=== PATIENT | female | born 1950 | race Caucasian/White ===

== ENCOUNTER 2021-05-24 13:06 | Emergency (ER) | payer SELFPAY ==
[2021-05-24 13:36] VITALS: BP 159/66; BMI 27.6
[2021-05-24 13:37] VITALS: PULSE 62; TEMP 98.2
[2021-05-24] MEDS ORDERED: KETOROLAC TROMETHAMINE 30 MG/1 ML VIAL IM ONE (15:10)
[2021-05-24] MEDS ORDERED: KETOROLAC TROMETHAMINE 30 MG/1 ML VIAL ONE (15:14)
== END 2021-05-24 15:19 | disposition home or self-care (01) ==
LOC: JER 13:06 → JERFT 13:06
DX: M79.672 Pain in left foot (principal)
CPT/HCPCS: 93005; 93010; 99281-25

== ENCOUNTER 2024-06-15 10:28 | Inpatient (IN) | payer SELFPAY ==
[2024-06-15] MEDS ORDERED: ACETAMINOPHEN INJECTION 100 ML ONE (11:50)
[2024-06-15 12:17] LABS: BASO % 0.7 % (0-2.0); EOS % 3.9 % (0-4.5); HEMATOCRIT 35.8 % (32.4-45.2); HEMOGLOBIN 12.2 GM/dL (10.7-15.3); MCH 29.9 pg (25.7-33.7); MCHC 34.1 g/dl (32.0-36.0); MEAN CELL VOLUME 87.6 fl (80-96); MONO % 7.6 % (3.8-10.2); NEUT % 57.8 % (42.8-82.8); PLATELET COUNT 381 10^3/uL (134-434); RBC 4.08 M/mm3 (3.60-5.2); RDW 14.5 % (11.6-15.6); WHITE BLOOD COUNT 6.9 K/mm3 (4.0-10.0)
[2024-06-15 12:50] LABS: CHLORIDE 105 mmol/L (98-107); POTASSIUM 4.2 mmol/L (3.5-5.1); SODIUM 137 mmol/L (136-145)
[2024-06-15 12:51] LABS: CALCIUM 9.4 mg/dL (8.5-10.1)
[2024-06-15 12:52] LABS: ALBUMIN 3.5 g/dl (3.4-5.0); ANION GAP 7 mmol/L (4-13); BLOOD UREA NITROGEN 24.2 mg/dL (7-18); CO2 25 mmol/L (21-32); GLUCOSE,RANDOM 252 mg/dL (74-106)
[2024-06-15 12:55] LABS: CREATININE 0.9 mg/dL (0.55-1.3); ERYTHROCYTE SEDIMENTATION RATE 43 mm/hr (0-30); SGOT/AST 18 U/L (15-37); SGPT/ALT 29 U/L (13-61)
[2024-06-15 12:56] LABS: TOT PROT 7.6 g/dl (6.4-8.2)
[2024-06-15] MEDS: ACETAMINOPHEN 1000 MG/100 ML BAG IVPB ONE (12:56)
[2024-06-15 12:58] LABS: ALK PHOS 92 U/L (45-117); BILIRUBIN,TOTAL 0.3 mg/dL (0.2-1)
[2024-06-15] MEDS ORDERED: VANCOMYCIN/WATER 1250 MG 1,250 MG/250 ML BAG IVPB ONE (15:06)
[2024-06-15] MEDS ORDERED: PIPERACILLIN/TAZOB 4.5 GM 4.5 GM/100 ML BAG IVPB ONE (15:06)
[2024-06-15] MEDS: PIPERACILLIN/TAZOB 4.5 GM 4.5 GM in DEXTROSE 5%-WATER 100 ML IVPB ONE (15:32)
[2024-06-15] MEDS ORDERED: diphenhydrAMINE HCL 25 MG CAPSULE (FP) PO ONE (16:34)
[2024-06-15] MEDS: diphenhydrAMINE HCL 25 MG CAPSULE (FP) PO ONE (16:43)
[2024-06-15] MEDS: INSULIN ASPART SLIDING SCALE (NOVOLOG) 1 VIAL SQ SCH (17:12)
[2024-06-15] MEDS: VANCOMYCIN/WATER 1250 MG 1,250 MG/250 ML BAG IVPB ONE (17:20)
[2024-06-15 18:04] VITALS: BMI 25.2
[2024-06-15] MEDS: HEPARIN NA (PORCINE) 5,000 UNITS/ML 1ML VIAL SQ SCH (21:11)
[2024-06-15] MEDS: CEFTRIAXONE 2 GM in DEXTROSE 5%-WATER 100 ML IVPB SCH (21:12)
[2024-06-15] MEDS: ACETAMINOPHEN 500 MG TABLET (FP) PO PRN (21:12)
[2024-06-15] MEDS: INSULIN (LEVEMIR) 100 UNITS/ML UNITS SQ SCH (21:13)
[2024-06-15] MEDS ORDERED: PIPERACILLIN/TAZOB 4.5 GM 4.5 GM in DEXTROSE 5%-WATER 100 ML IVPB SCH (22:00)
[2024-06-16] MEDS ORDERED: VANCOMYCIN 750 MG in DEXTROSE 5%-WATER - 100 ML IVPB SCH (06:00)
[2024-06-16] MEDS: VANCOMYCIN/WATER FOR INJ (PEG) 750 MG/150 ML BAG IVPB SCH (06:18)
[2024-06-16 07:42] LABS: BASO % 0.6 % (0-2.0); EOS % 5.2 % (0-4.5); HEMATOCRIT 34.9 % (32.4-45.2); HEMOGLOBIN 12.1 GM/dL (10.7-15.3); LYMPH % 34.8 % (8-40); MCH 30.3 pg (25.7-33.7); MCHC 34.6 g/dl (32.0-36.0); MEAN CELL VOLUME 87.7 fl (80-96); MEAN PLT VOLUME 7.2 fl (7.5-11.1); MONO % 7.9 % (3.8-10.2); NEUT % 51.5 % (42.8-82.8); PLATELET COUNT 354 10^3/uL (134-434); RBC 3.98 M/mm3 (3.60-5.2); RDW 14.3 % (11.6-15.6); WHITE BLOOD COUNT 6.3 K/mm3 (4.0-10.0)
[2024-06-16 07:56] LABS: POTASSIUM 3.8 mmol/L (3.5-5.1)
[2024-06-16 07:59] LABS: CALCIUM 8.9 mg/dL (8.5-10.1)
[2024-06-16 08:00] LABS: BLOOD UREA NITROGEN 18.5 mg/dL (7-18)
[2024-06-16 08:03] LABS: CREATININE 0.6 mg/dL (0.55-1.3)
[2024-06-16] MEDS: INSULIN (LEVEMIR) 100 UNITS/ML UNITS SQ SCH (12:01)
[2024-06-16] MEDS: LISINOPRIL 10 MG TABLET PO SCH (12:02)
[2024-06-16] MEDS: DOXYCYCLINE HYCLATE 100 MG CAPSULE PO SCH (18:14)
[2024-06-17 08:45] LABS: EPI CELLS 9 /uL (0-25.1); HYALINE CASTS 0 /uL (0-3.1); PH,URINE 5.5 (5.0-8.0); URINE APPEARANCE CLEAR; URINE BACTERIA 4 /uL (0-1359); URINE BILIRUBIN NEGATIVE (NEGATIVE); URINE COLOR YELLOW; URINE GLUCOSE (UA) NEGATIVE (NEGATIVE); URINE KETONE NEGATIVE (NEGATIVE); URINE LEUK ESTERASE TRACE (NEGATIVE); URINE NITRITE NEGATIVE (NEGATIVE); URINE PROTEIN NEGATIVE (NEGATIVE); URINE RBC 13 /uL (0-23.9); URINE UROBILINOGEN 0.2 mg/dL (0.2-1.0); URINE WBC 17 /uL (0-25.8)
[2024-06-17 09:17] LABS: HEMATOCRIT 34.5 % (32.4-45.2); MCH 30.3 pg (25.7-33.7); MCHC 34.6 g/dl (32.0-36.0); MEAN CELL VOLUME 87.7 fl (80-96); MEAN PLT VOLUME 7.5 fl (7.5-11.1); PLATELET COUNT 341 10^3/uL (134-434); RBC 3.94 M/mm3 (3.60-5.2); RDW 14.5 % (11.6-15.6); WHITE BLOOD COUNT 5.5 K/mm3 (4.0-10.0)
[2024-06-17 09:39] LABS: POTASSIUM 3.5 mmol/L (3.5-5.1)
[2024-06-17 09:47] LABS: CALCIUM 8.9 mg/dL (8.5-10.1)
[2024-06-17 09:48] LABS: BLOOD UREA NITROGEN 18.2 mg/dL (7-18)
[2024-06-17 09:49] LABS: CREATININE 0.6 mg/dL (0.55-1.3)
[2024-06-17 16:11] VITALS: RESP 18
[2024-06-17] MEDS: ACETAMINOPHEN 325 MG TABLET (FP) PO SCH (21:50)
[2024-06-17] MEDS: GABAPENTIN 100 MG CAPSULE PO SCH (21:50)
[2024-06-17] MEDS: ATORVASTATIN CA 20 MG TABLET (FP) PO SCH (21:50)
[2024-06-17] MEDS: INSULIN (LEVEMIR) 100 UNITS/ML UNITS SQ SCH (21:52)
[2024-06-18] MEDS ORDERED: KETOROLAC TROMETHAMINE 30 MG/1 ML VIAL IVPUSH PRN (06:49)
[2024-06-18 10:21] LABS: HEMATOCRIT 39.2 % (32.4-45.2); HEMOGLOBIN 13.3 GM/dL (10.7-15.3); MCH 29.8 pg (25.7-33.7); MCHC 33.8 g/dl (32.0-36.0); MEAN CELL VOLUME 88.1 fl (80-96); MEAN PLT VOLUME 7.5 fl (7.5-11.1); PLATELET COUNT 387 10^3/uL (134-434); RBC 4.45 M/mm3 (3.60-5.2); RDW 14.2 % (11.6-15.6)
[2024-06-18 10:55] LABS: POTASSIUM 3.8 mmol/L (3.5-5.1)
[2024-06-18 10:58] LABS: BLOOD UREA NITROGEN 16.2 mg/dL (7-18); CALCIUM 9.9 mg/dL (8.5-10.1)
[2024-06-18 11:01] LABS: CREATININE 0.5 mg/dL (0.55-1.3)
[2024-06-18 14:21] VITALS: BP 107/53; PULSE 80; TEMP 98.2
== END 2024-06-18 16:25 | disposition home or self-care (01) | DRG 420 ==
LOC: JER 10:28 → JERBED 14:55 → J6S 19:07
PROVIDERS: ADMIT Internal Medicine; ATTEND Internal Medicine
DX: E11.65 Type 2 diabetes mellitus with hyperglycemia (principal); E78.5 Hyperlipidemia, unspecified; E11.42 Type 2 diabetes mellitus with diabetic polyneuropathy; Z79.4 Long term (current) use of insulin; M79.675 Pain in left toe(s)
CPT/HCPCS: 36415; 73630-TC-LT; 73660-TC-LT-FY; 80048; 80053; 80061; 81003; 82962; 83036; 83735; 84100; 85025; 85027; 85651; 86140; 87070; 87076; 87205; 93926-TC; 97116-GP; 97162-GP; 99285-25; J0131; J1644